=== PATIENT | female | born 1950 | race African-American/Black ===

== ENCOUNTER → 2016-07-19 | Outpatient (CLI) | payer OTHER ==
[~2016-07-19] VITALS: Ht 154.9 cm; Wt 90.7 kg
[~2016-07-19] MED LIST: ASPIR 8181 MG PO; BETIMOL15 ML OP; NORVASC5 MG PO; ZIOPTAN 0.00151 EACH OP
--- NOTE | ~2016-07-19 | S ---
[facility] [place] [address] SURGICAL PATH RPT PROCEDURE Name: ANTONI MONTERO Room #: REG [facility].#: [id number] Admission: 07/19/16 Date of : 46 Discharge: Report #: [id number] Path Case #: [id number] PATHOLOGY REPORT COLLECTION DATE: 07/19/2016 RECEIVED DATE: 07/19/2016 SUBMITTING PHYS: Dr. Jalen Rodriguez OTHER PHYS: Dr. Chaitanya Gold SPECIMEN(S) RECEIVED: A.Bx of gastritis B.Bx of distal esophagus * * * * * * * * * * * * FINAL DIAGNOSIS: A. Gastric mucosa, gastritis, endoscopic biopsy: - Helicobacter pylori-induced moderate active gastritis. - Negative for intestinal metaplasia, atrophy or dysplasia. B. Gastroesophageal mucosa, distal esophagus, endoscopic biopsy: - Specialized columnar (gastric cardia-type mucosa) with intestinal metaplasia, consistent with Deleon's metaplasia. - Negative for dysplasia. - Focal squamous mucosa with mild esophagitis. COMMENT: Helicobacter pylori immunohistochemical stain performed on block A1 moderate number of organisms present. (IUV:csd; d/t: 07/23/2016) PATHOLOGIST: Leslie Childs M.D. REPORT ELECTRONICALLY SIGNED BY: Leslie Childs M.D. DATE/TIME: 07/23/2016 16:08 * * * * * * * * * * * * GROSS PATHOLOGY: A. Received in formalin labeled "Antoni Montero, biopsy of gastritis," are multiple segments of kemp soft tissue measuring 0.6 cm in aggregate dimensions and ranging from 0.1 to 0.2 cm in maximum dimension. The specimen is submitted entirely in cassette A1. B. Received in formalin labeled "Antoni Montero, biopsy of distal esophagus," are multiple segments of kemp soft tissue measuring 0.6 cm in aggregate dimensions and ranging from 0.1 to 0.2 cm in maximum dimension. The specimen is submitted entirely in cassette B1. ([facility]; 07/20/2016) [address] [address] SURGICAL PATH RPT PROCEDURE Name: ANTONI MONTERO A Room #: REG [facility]#: [id number] Admission: 07/19/16 Date of : 46 Discharge: Report #: [id number] Path Case #: [id number] CLINICAL HISTORY: Dysphagia, rule out Deleon's INITIAL CPT CODE(S): A; 24766, 59513 B; 29429 Professional services performed by [facility] at [address], [place] [address] Technical services performed by [facility] at [address] [place] [address], [facility] [address], [place] [address]. [facility] [address] [place] [address] PHONE: [phone] DIRECTOR: Tan Salazar M.D. * * * END OF REPORT * * *
--- NOTE | ~2016-07-19 | P ---
[facility] [place] [address] PROCEDURE REPORT Name: ANTONI SÁNCHEZ Room #: REG [facility]#: [id number] Admission: 07/19/16 Attend Phys: Jalen Rodriguez MD Discharge: Date of : 46 Report #: [id number] THIS REPORT FOR: //name// CC: Chaitanya Rodriguez BRIEF HISTORY: The patient is a 66-year-old woman who presents with solid food dysphagia. She has had symptoms about 1 year, but in particular worsen in the past 3 months. There has been no weight loss. She in particular has difficulty with beef. PREOPERATIVE DIAGNOSIS: Worsening solid food dysphagia. POSTOPERATIVE DIAGNOSES: 1. Grade D erosive esophagitis. 2. Esophageal stricture. 3. Questionable short segment Deleon mucosa. 4. 3 cm hiatus hernia. 5. Antral gastritis with erosions. MEDICATIONS: Deep sedation with propofol per anesthesia. SPECIMEN: Biopsies of gastritis. ESTIMATED BLOOD LOSS: 3 mL. PROCEDURE: EGD with biopsy and Pizano dilation. FINDINGS: Prior to propofol sedation, procedure of upper endoscopy and dilation were discussed with the patient as well as potential risks and its complications. She indicates, she understands and desires to proceed. DESCRIPTION OF PROCEDURE: With the patient in left lateral decubitus position, the Fuji video endoscope was inserted in the cervical esophagus under direct vision without difficulty. Examination of this organ through its entire length revealed normal esophageal mucosa down the distal esophagus. In the distal esophagus, there was circumferential ulcerative changes consistent with grade D erosive esophagitis. There was extensive of ulcerative changes into the distal 2 cm of the esophagus. In addition, there was a mild stricture that was also involved with esophagitis. It did have a smooth and benign appearance. The obvious tumors were not seen. Just beyond this was about a 2 cm segment irregular appearing mucosa. It was not ulcerated or eroded. This may be short segment of Deleon and multiple biopsies were obtained. Beyond this suspected short segment Deleon, a 3 cm hiatus hernia was seen. Mucosa and hernia was normal. Scope was advanced into the stomach, was examined on end view as well as retroflexed views. There was erythema and multiple erosions in the antrum. [facility] [address] [place] [address] PROCEDURE REPORT Name: ANTONI SÁNCHEZ Room #: REG [facility]#: [id number] Admission: 07/19/16 Attend Phys: Jalen Rodriguez MD Discharge: Date of : 46 Report #: [id number] I believe the patient does use an aspirin daily. No ulcers were seen. Active bleeding was not seen. Upon retroflexion, the hiatus hernia was seen. No mass lesions were seen in the cardia. The pylorus, duodenal bulb and postbulbar sweep were all inspected and noted to be within normal limits. At that point, the scope was slowly withdrawn and careful circumferential views confirmed the above findings. The patient tolerated the procedure well. Following the procedure, she was dilated with passage of a 50-Bahamian Pizano dilator. There was no resistance or difficulty passing the dilator. CONDITION OF THE PATIENT UPON DISCHARGE: Following procedure, the patient drowsy. She will be discharged home when fully ambulatory. INSTRUCTIONS TO THE PATIENT AND FAMILY AT THE TIME OF DISCHARGE: We will follow up on the biopsies with regards to possibly Deleon OR even neoplastic changes in the distal esophagus. We will have start her on omeprazole 40 mg daily. Also, have return in approximately 3 months for repeat endoscopy and potentially biopsy, especially with regards to concern for Deleon's mucosa. Deleon mucosa in the face of a Grade D esophagitis. She is return as needed for dilation based on symptoms of recurrent dysphagia. She may need a PPI on a long-term basis. If she does not have adequate control of symptoms, she is to return to see me in followup in the office. She will otherwise return to care of Dr. Chaitanya Gold. By: 0921 [id number] Jalen Rodriguez MD /prakash
== END | disposition home or self-care (01) ==
LOC: GI 07:44
DX: K22.10 Ulcer of esophagus without bleeding (principal); K29.60 Other gastritis without bleeding; K22.2 Esophageal obstruction; K44.9 Diaphragmatic hernia without obstruction or gangrene; I10 Essential (primary) hypertension; Z87.891 Personal history of nicotine dependence; Z90.710 Acquired absence of both cervix and uterus; Z98.41 Cataract extraction status, right eye; Z98.42 Cataract extraction status, left eye; Z96.1 Presence of intraocular lens
CPT/HCPCS: 62110; 62900

== ENCOUNTER → 2016-10-26 | Outpatient (CLI) | payer OTHER ==
[~2016-10-26] VITALS: Ht 154.9 cm; Wt 90.7 kg
[~2016-10-26] MED LIST changes: +OMEPRAZOLE40 MG PO
--- NOTE | ~2016-10-26 | S ---
[facility] [place] [address] SURGICAL PATH RPT PROCEDURE Name: ANTONI MONTERO Room #: REG [facility]#: [id number] Admission: 10/26/16 Date of : 46 Discharge: Report #: [id number] Path Case #: [id number] PATHOLOGY REPORT COLLECTION DATE: 10/26/2016 RECEIVED DATE: 10/26/2016 SUBMITTING PHYS: Dr. Jalen Rodriguez OTHER PHYS: Dr. Chaitanya Gold SPECIMEN(S) RECEIVED: A.Bx of gastritis B.Bx of esophagus * * * * * * * * * * * * FINAL DIAGNOSIS: A. Stomach, "gastritis," biopsy: - Chronic superficial gastritis, mild. - No evidence of Helicobacter pylori on immunoperoxidase stain. B. Esophagus, biopsy: - Squamocolumnar epithelium with moderate chronic submucosal inflammation and focal intestinal metaplasia, findings consistent with Deleon's esophagus. - No evidence of dysplasia. (SKM:mgjoselyn; 10/29/2016) PATHOLOGIST: Maris Wong M.D. REPORT ELECTRONICALLY SIGNED BY: Maris Wong M.D. DATE/TIME: 10/29/2016 15:39 * * * * * * * * * * * * GROSS PATHOLOGY: A. Received in formalin labeled "Antoni Winston, bx of gastritis," are 4 segments of kemp soft tissue measuring 1.2 x 0.3 x 0.2 cm in aggregate dimensions and ranging from 0.2 to 0.4 cm in maximum dimension. The specimen is submitted entirely in cassette A1. B. Received in formalin labeled "Antoni Montero, biopsy of esophagus," are 3 segments of kemp soft tissue measuring 0.7 x 0.5 x 0.2 cm in aggregate dimensions and ranging from 0.2 to 0.5 cm in maximum dimension. The specimen is submitted entirely in cassette B1. ([facility]; 10/27/2016) CLINICAL HISTORY: Pre-op dx: H. pylori history (treated), rule out persistent H. pylori, history of Deleon's Post-op dx: Gastritis, hiatal hernia [address] [address] SURGICAL PATH RPT PROCEDURE Name: ANTONI MONTERO Room #: REG [facility]#: [id number] Admission: 10/26/16 Date of : 46 Discharge: Report #: [id number] Path Case #: [id number] INITIAL CPT CODE(S): A; 95829, 16673 B; 89795 Professional services performed by [facility] at [address] , [place] [address] Technical services performed by [facility] at [address] [place] [address], [facility] [address] [address]. [facility] [address] [place] [address] PHONE: [phone] DIRECTOR: Tan Salazar M.D. * * * END OF REPORT * * *
== END | disposition home or self-care (01) ==
LOC: GI 08:13
DX: K29.40 Chronic atrophic gastritis without bleeding (principal); K22.70 Barrett's esophagus without dysplasia; K22.8 Other specified diseases of esophagus; K44.9 Diaphragmatic hernia without obstruction or gangrene; I10 Essential (primary) hypertension; K21.9 Gastro-esophageal reflux disease without esophagitis; Z87.891 Personal history of nicotine dependence; Z90.710 Acquired absence of both cervix and uterus; Z98.41 Cataract extraction status, right eye; Z98.42 Cataract extraction status, left eye; Z96.1 Presence of intraocular lens; Z98.890 Other specified postprocedural states; Z79.82 Long term (current) use of aspirin; Z79.899 Other long term (current) drug therapy
CPT/HCPCS: 62110; 62900

== ENCOUNTER 2017-09-15 02:11 | Inpatient (IN) | payer OTHER ==
[~2017-09-15] VITALS: Ht 157.5 cm; Wt 96.6 kg
--- NOTE | ~2017-09-15 | HC ---
[facility] [place] [address] CONSULTATION Name: PRINCESSANTONI Charleen Room #: 458-P [facility] IN ..#: [id number] Admission: 09/15/17 Attend Phys: Douglas Jordan MD Discharge: Date of : 46 Report #: [id number] THIS REPORT FOR: //name// CC: Chaitanya Jordan DATE OF SERVICE: 09/15/2017 REFERRING PROVIDER: Douglas Jordan MD REASON FOR CONSULT: Abdominal pain. HISTORY OF PRESENT ILLNESS: A 67-year-old overweight female who presented to the Emergency Room complaining of severe sudden onset abdominal pain that lasted 10-15 minutes and resolved without any reoccurrence of pain. The patient states her pain was in the upper, middle abdomen to the right upper quadrant that was accompanied with a tinge of nausea. The patient was evaluated with laboratories and a CT scan of the abdomen and pelvis. The patient's labs were within normal limits. Her lactic acid was slightly elevated at 2.[address] scan of the abdomen and pelvis showed only a large amount of stool and gas throughout the colon as well as circumferential wall thickening involving the cecum and ascending colon with mesenteric fat stranding suggesting right-sided colitis. No evidence of perforation or abscess was seen. As such, the patient was admitted and I am asked to evaluate. Repeat lactic acid this morning appropriately came down to 1.3 with hydration and she feels quite well at the bedside today. PAST MEDICAL HISTORY: Hypertension, Deleon esophagus, GERD, prior H. pylori positivity, glaucoma, cataracts and she has had a total hysterectomy. HOME MEDICATIONS: Timolol eyedrops, Zioptan eye drops, prednisolone eyedrops, iron, amlodipine and omeprazole. ALLERGIES: No known drug allergies. FAMILY HISTORY: Reviewed and noncontributory. SOCIAL HISTORY: The patient does not currently use any tobacco, alcohol or illicit drugs. She was a former smoker, having a 52-jdqb-kula history. REVIEW OF SYSTEMS: GENERAL: The patient denies nocturnal fevers or chills. HEENT: No change in vision, change in hearing. NECK: No swelling or difficulty swallowing. HEART: No chest pain or palpitations. LUNGS: No cough or shortness of breath. [facility] [address] [place] [address] CONSULTATION Name: ANTONI SÁNCHEZ Charleen Room #: 458-P [facility] IN [facility].#: [id number] Admission: 09/15/17 Attend Phys: Douglas Jordan MD Discharge: Date of : 46 Report #: [id number] ABDOMEN: Fleeting abdominal pain and nausea that has resolved. No diarrhea. GENITOURINARY: No dysuria or hematuria. ENDOCRINE: No polyuria, polydipsia. HEMATOLOGIC: No history of bleeding or easy bruising. EXTREMITIES: No history weakness or limited range of motion. NEUROLOGIC: No history of syncope or near syncopal episodes. SKIN AND INTEGUMENT: No history of abnormal lesions or moles. PSYCHIATRIC: No history of anxiety or depression. PHYSICAL EXAMINATION: VITAL SIGNS: Temperature 97.9, pulse 69, respirations 16, blood pressure 134/50. She is 5 feet 2 inches tall and weighs 213 pounds. GENERAL: Alert and oriented, in no acute distress. HEENT: Normocephalic, atraumatic. Pupils equal, round, reactive to light. NECK: Supple, without lymphadenopathy. Trachea midline. HEART: Regular rate and rhythm. LUNGS: Clear to auscultation bilaterally. ABDOMEN: Soft, nondistended, very minimal tenderness to very deep palpation in the right mid abdomen, but no guarding, rebound or peritoneal signs or symptoms. GENITOURINARY: Normal external female genitalia. EXTREMITIES: No clubbing, cyanosis or edema. NEUROLOGIC: Cranial nerves 2-12 are grossly intact. PSYCHIATRIC: Normal mood and affect. SKIN AND INTEGUMENT: No abnormal lesions or moles. LABORATORY AND X-RAY DATA: CBC shows white blood cell count of 2.9 thousand, hemoglobin 10.0, platelets 365,000. She does have a left shift of 84% neutrophils. Her creatinine is 0.8. Liver function enzymes are normal. Lactate went from 2.6 to 1.[address] scan of the abdomen and pelvis as per HPI shows a circumferential mural thickening of the cecum and ascending colon with pericolonic stranding consistent with right-sided colitis. ASSESSMENT AND PLAN: A 67-year-old overweight female with what appears to be right-sided colitis of unknown etiology. As at this time, the patient's clinical presentation is largely benign and as such, I will allow her to have clear liquids at this time with continuation of IV fluids and IV antibiotics as already initiated. This should be hopefully a self-limited process; however, it would be prudent to get Gastroenterology evaluate as well as she has not had a colonoscopy in some time. We will follow with serial abdominal exams, laboratory evaluation and any radiographic evaluation ongoing as indicated by her clinical course. [address] [address] CONSULTATION Name: ANTONI SÁNCHEZ Room #: 458-P [facility] IN M.R.#: [id number] Admission: 09/15/17 Attend Phys: Douglas Jordan MD Discharge: Date of : 46 Report #: [id number] I sincerely appreciate this consult. I will follow along and leave any further recommendations in the patient's chart as appropriate. <ELECTRONICALLY SIGNED> By: Ryan Mukherjee MD, FACS 09/15/17 [id number] Ryan Mukherjee MD, FACS /nt
--- NOTE | ~2017-09-15 | PATH ---
[facility] [place] [address] PATHOLOGY RPT PROCEDURE Name: ANTONI MONTERO Charleen Room #: 458-P [facility] IN M.R.#: [id number] Admission: 09/15/17 Date of : 46 Discharge: 09/19/17 Report #: [id number] Path Case #: [id number] [facility] Accession Number: [id number] . 01 Material submitted: . PART A: BX'S OF MASS AT PROXIMAL ASCENDING COLON PART B: POLYP AT TRANSVERSE COLON . 01 Clinical history: . Pre-op DX: Colitis, RLQ Post-op DX: Colon mass, colon polyp . 02 Diagnosis: A. 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 . B. Polyp, at transverse colon, endoscopic biopsy: - Cauterized fragment of hyperplastic polyp. - Negative for dysplasia. LBQ/09/20/2017 . 02 Comment: Part A only is co-reviewed by Dr. Marybeth Caicedo. . Findings are discussed with Dr. Karyna Daniel at 12:59 p.m. on 09/20/17. . Per [facility] Cancer Committee Protocol, the MSI markers (four immunohistochemical stains) are ordered on block A1. The results of these will be reported in an addendum to follow. (IUV:db; 09/20/2017) . 02 Addendum: . MICROSATELLITE INSTABILITY REPORT (MSI): . Per the [facility] Cancer Committee Protocol, mismatch repair (MMR) protein immunohistochemical staining was performed. . Reason for testing:To evaluate for evidence of defective mismatch repair proteins. . Method:Immunohistochemical staining for the presence or absence of protein expression of one or more of the following MMR protein markers: MLH1, MSH2, MSH6 and PMS2. . Tumor type:[place] [address] PATHOLOGY RPT PROCEDURE Name: ANTONI MONTERO Charleen Room #: 458-P [facility] IN .R.#: [id number] Admission: 09/15/17 Date of : 46 Discharge: 09/19/17 Report #: [id number] Path Case #: [id number] . Results: MLH1 - Preserved MSH2 - Preserved MSH6 - Preserved PMS2 - Preserved . Mismatch Repair Status:MMR Proficient (MMR-P) . Interpretation: . (MMR-P) All four MMR proteins are preserved within tumor cells. This suggests the presence of normal DNA mismatch repair function within the tumor and an observable defect in mismatch repair is not identified. The likelihood that this patient has an inherited germline mutation syndrome due to defective mismatch repair is reduced but not totally eliminated. If the patient has a strong personal or family history of HPNCC/Frankel syndrome related cancers (colorectal, endometrial, gastric, ovarian, pancreatic, ureter/renal pelvis, biliary tract, brain, small bowel and Twain Harte-Miguel syndrome), consider MSI testing by PCR methodology. Suggest clinical correlation and follow up. . These test results are designed for screening purposes only and are useful tools in identifying cancer patients that are more likely to have Frankel Syndrome related diagnoses. Tests should be interpreted in the context of clinical findings, family history and laboratory data. Abnormal IHC results for MMR protein expression are not considered diagnostic for Frankel Syndrome. (IUV:db; 09/24/2017) . Professional services performed by [employer] at [facility], [address] [place] [address] , [place] [address]. Technical services performed by [employer] at [address] [place] [address], [address], [place] [address]. QRQ/09/24/2017 Addendum Electronically Signed by Leslie Childs MD, Pathologist . 02 Electronically signed: . Leslie Childs MD, Pathologist NPI- [id number] . 01 Gross description: . A. Received in formalin labeled "Antoni Montero, BXs of mass at proximal ascending colon," are eight segments of kemp soft tissue measuring 1.0 x 0.7 x 0.3 cm in aggregate dimensions and ranging from 0.2 to 0.5 cm in maximum dimension. The specimen is submitted entirely in cassette A1. . B. Received in formalin labeled "Faviola Monteroh, polyp at transverse colon," is a segment of kemp soft tissue measuring 0.4 cm in maximum dimension [facility] [address] [place] [address] PATHOLOGY RPT PROCEDURE Name: ANTONI MONTERO Room #: 458-P [facility] IN M.R.#: [id number] Admission: 09/15/17 Date of : 46 Discharge: 09/19/17 Report #: [id number] Path Case #: [id number] admixed with mucoid material. The specimen is submitted entirely in cassette B1. (DAC; 09/19/2017) XDC/XDC . 02 Pathologist provided ICD-10: C18.2, D12.2, K63.5 . 02 CPT . 971585, 940230, D59201, W68071 Performed at: [address] [facility], [place] [id number] MD Rome Ferguson MD Phone: [phone] Performed at: [address] [id number] MD Leslie Childs MD Phone: [phone]
[~2017-09-15 02:11] MED LIST changes: -BETIMOL15 ML OP; +BETIMOL5 ML INTRAOCULR
[2017-09-15 02:16] VITALS: BP 160/87
[2017-09-15 02:47] LABS: URINE BILIRUBIN NEGATIVE (Negative); URINE BLOOD NEGATIVE (Negative); URINE CLARITY CLEAR; URINE COLOR YELLOW; URINE GLUCOSE-RANDOM* NEGATIVE (Negative); URINE KETONES NEGATIVE (Negative); URINE LEUKOCYTES NEGATIVE (Negative); URINE NITRITE NEGATIVE (Negative); URINE PROTEIN (DIPSTICK) NEGATIVE (Negative); URINE UROBILINOGEN 0.2 E.U./dl (0.2-1.0)
[2017-09-15 03:10] LABS: HEMATOCRIT 30.9 % (37.0-47.0); MCH 28.1 pg (26.0-34.0); MCHC 32.3 g/dL (28.0-37.0); PLATELET COUNT 365 thou/uL (150-400); RBC 3.56 mil/uL (4.20-5.00); RDW 16.5 % (10.5-14.5); WBC 2.9 thou/uL (4.0-11.0)
[2017-09-15 03:20] LABS: CALCIUM 8.7 mg/dL (8.5-10.1); CREATININE 0.8 mg/dL (0.6-1.0); POTASSIUM 3.5 mmol/L (3.5-5.1)
[2017-09-15 03:26] LABS: ALBUMIN 3.4 g/dL (3.4-5.0); DIRECT BILIRUBIN 0.1 mg/dL (<0.1-0.3); TOTAL BILIRUBIN 0.5 mg/dL (<0.1-1.0); TOTAL PROTEIN 7.5 g/dL (6.4-8.2)
[2017-09-15 03:43] LABS: ABSOLUTE NEUTROPHILS 2.5 thou/uL (1.4-8.2); ANISOCYTOSIS 1+
[2017-09-15 03:44] LABS: MACROCYTES SLIGHT; POLYCHROMASIA OCCASIONAL
[2017-09-15] MEDS ORDERED: PRED MILD5 ML INTRAOCULR (04:12)
[2017-09-15] MEDS ORDERED: IRON325 PO (04:13)
[2017-09-15 07:00] VITALS: BP 132/63
[2017-09-15 19:58] VITALS: BP 134/50
[2017-09-16 04:03] VITALS: BP 143/76
[2017-09-16 06:31] LABS: BASOPHILS 0.4 % (0.0-2.0); EOSINOPHILS 0.6 % (0.0-3.0); HEMATOCRIT 27.2 % (37.0-47.0); HEMOGLOBIN 8.7 gm/dL (12.0-15.0); LYMPHOCYTES 21.9 % (24.0-44.0); MCH 28.1 pg (26.0-34.0); MCHC 32.2 g/dL (28.0-37.0); MCV 87.1 fL (80.0-100.0); MONOCYTES 8.5 % (1.0-8.0); PLATELET COUNT 273 thou/uL (150-400); POLYS 68.6 % (36.0-66.0); RBC 3.12 mil/uL (4.20-5.00); RDW 16.2 % (10.5-14.5); WBC 7.2 thou/uL (4.0-11.0)
[2017-09-16 06:55] LABS: CALCIUM 8.4 mg/dL (8.5-10.1); CREATININE 0.7 mg/dL (0.6-1.0); MAGNESIUM 1.7 mg/dL (1.8-2.4); POTASSIUM 3.2 mmol/L (3.5-5.1)
[2017-09-16 08:09] VITALS: BP 168/70
[2017-09-16 10:46] LABS: % SATURATION 5 % (20-39); IRON 15 ug/dL (50-170); TIBC 302 ug/dL (250-450)
[2017-09-16 15:59] VITALS: BP 145/63
[2017-09-16 18:42] LABS: MAGNESIUM 2.7 mg/dL (1.8-2.4); POTASSIUM 4.2 mmol/L (3.5-5.1)
[2017-09-16 21:06] VITALS: BP 132/67
[2017-09-17 04:14] VITALS: BP 150/75
[2017-09-17 07:20] VITALS: BP 146/73
[2017-09-17 15:53] VITALS: BP 153/84
[2017-09-17 19:27] VITALS: BP 155/79
[2017-09-18 03:20] VITALS: BP 144/72
[2017-09-18 05:19] LABS: HEMATOCRIT 30.3 % (37.0-47.0); HEMOGLOBIN 9.7 gm/dL (12.0-15.0); MCHC 31.9 g/dL (28.0-37.0); MCV 87.6 fL (80.0-100.0); RBC 3.46 mil/uL (4.20-5.00); RDW 15.8 % (10.5-14.5); WBC 4.5 thou/uL (4.0-11.0)
[2017-09-18 05:36] LABS: CALCIUM 8.7 mg/dL (8.5-10.1); CREATININE 0.7 mg/dL (0.6-1.0); POTASSIUM 3.5 mmol/L (3.5-5.1)
[2017-09-18 08:00] VITALS: BP 152/69
[2017-09-18 16:00] VITALS: BP 179/85
[2017-09-18 19:30] VITALS: BP 126/69
[2017-09-19 04:26] VITALS: BP 144/70
[2017-09-19 05:28] LABS: HEMATOCRIT 30.5 % (37.0-47.0); HEMOGLOBIN 9.7 gm/dL (12.0-15.0); MCH 27.8 pg (26.0-34.0); MCHC 31.8 g/dL (28.0-37.0); MCV 87.4 fL (80.0-100.0); RBC 3.49 mil/uL (4.20-5.00); RDW 15.8 % (10.5-14.5); WBC 3.6 thou/uL (4.0-11.0)
[2017-09-19 05:41] LABS: CALCIUM 8.7 mg/dL (8.5-10.1); CREATININE 0.7 mg/dL (0.6-1.0); POTASSIUM 3.5 mmol/L (3.5-5.1)
[2017-09-19 08:00] VITALS: BP 146/72
[2017-09-19 15:55] VITALS: BP 139/77
[2017-09-19] MEDS ORDERED: AUGMENTIN 875-1 EACH PO (16:57)
[2017-09-19 17:45] VITALS: BP 139/77
[2017-09-19 20:35] VITALS: BP 142/79
== END 2017-09-19 23:52 | disposition home or self-care (01) | DRG 871 ==
LOC: ER 02:11 → 4W 05:01 → EROBS 05:01 → 4W 06:39
PROVIDERS: Emergency Medicine; Hospitalist; Internal Medicine; Nurse Practitioner
PROC: 0DBK8ZX Excision of Ascending Colon, Via Natural or Artificial Opening Endoscopic, Diagnostic (ICD-10-PCS; principal; 2017-09-18)
PROC: 0DBL8ZZ Excision of Transverse Colon, Via Natural or Artificial Opening Endoscopic (ICD-10-PCS; principal; 2017-09-18)
DX: A41.9 Sepsis, unspecified organism (principal); E43 Unspecified severe protein-calorie malnutrition; K52.9 Noninfective gastroenteritis and colitis, unspecified; I10 Essential (primary) hypertension; H40.9 Unspecified glaucoma; D72.819 Decreased white blood cell count, unspecified; K21.9 Gastro-esophageal reflux disease without esophagitis; K37 Unspecified appendicitis; D50.9 Iron deficiency anemia, unspecified; K59.09 Other constipation; K82.8 Other specified diseases of gallbladder; Z90.710 Acquired absence of both cervix and uterus; Z98.42 Cataract extraction status, left eye; Z98.41 Cataract extraction status, right eye; Z87.891 Personal history of nicotine dependence; Z79.899 Other long term (current) drug therapy; Z79.82 Long term (current) use of aspirin; Z68.38 Body mass index [BMI] 38.0-38.9, adult
CPT/HCPCS: 10040; 62110; 62900; 70005

== ENCOUNTER 2017-10-29 05:32 | Inpatient (IN) | payer OTHER ==
[2017-10-29] VITALS (9 sets, daily range): BP systolic 115–153; BP diastolic 45–76
[~2017-10-29] VITALS: Ht 157.5 cm; Wt 91.6 kg
--- NOTE | ~2017-10-29 | PATH ---
[facility] [place] [address] PATHOLOGY RPT PROCEDURE Name: ANTONI MONTERO Charleen Room #: 220-P [facility] IN M.R.#: [id number] Admission: 10/29/17 Date of : 46 Discharge: 11/01/17 Report #: [id number] Path Case #: [id number] [facility] Accession Number: [id number] . 01 Material submitted: . PART A: ILEOCECAL PART B: ANASTOMATIC END . 01 Clinical history: . Right colon cancer . 02 Diagnosis: A. Ileum, appendix and right colon, robotic right hemicolectomy: - INVASIVE MODERATELY DIFFERENTIATED ADENOCARCINOMA, INVADING THROUGH MUSCULARIS PROPRIA INTO SUBSEROSAL CONNECTIVE TISSUES. - Tumor deposits present in pericolonic adipose tissue. - Additional tubular adenoma x 2 identified in the colon. - Appendix showing fibrous obliteration of the tip. - Margins of resection free of malignancy. - NINE LYMPH NODES SHOWING METASTATIC ADENOCARCINOMA OF TWENTY-TWO SAMPLED. . B. Small bowel and large intestine, anastomotic end: - Negative for dysplasia or malignancy. - No histopathologic abnormalities present. (IUV:pit 11/01/2017) . . Surgical Pathology Cancer Case Summary . . . Protocol posting date: August 2016 . . . . . COLON AND RECTUM: Resection, Including Transanal Disk Excision of Rectal Neoplasms . . Procedure ___ Right hemicolectomy/ Robotic Colon Resection . . . Tumor Site [address] [address] PATHOLOGY RPT PROCEDURE Name: ANTONI MONTERO Cahrleen Room #: 220-P [facility] IN ..#: [id number] Admission: 10/29/17 Date of : 46 Discharge: 11/01/17 Report #: [id number] Path Case #: [id number] ___ Right (ascending) colon . . . Tumor Size Greatest dimension (centimeters): 5.0 x 3.5 cm . . . Macroscopic Tumor Perforation . ___ Not identified . . . Histologic Type ___ Adenocarcinoma . . . Histologic Grade ___ G2: Moderately differentiated . . . Tumor Extension . ___ Tumor invades through the muscularis propria into pericolorectal tissue . . . Margins ___ All margins are uninvolved by invasive carcinoma, high-grade dysplasia, intramucosal adenocarcinoma, and adenoma . Margins examined: . Distance of invasive carcinoma from closest margin: 2.5 cm . Specify closest margin: Ileocecal margin . . . Treatment Effect . ___ No known presurgical therapy . [address] [address] PATHOLOGY RPT PROCEDURE Name: ANTONI MONTERO Room #: 220-P [facility] IN ..#: [id number] Admission: 10/29/17 Date of : 46 Discharge: 11/01/17 Report #: [id number] Path Case #: [id number] . Lymphovascular Invasion ___ Present . . Perineural Invasion ___ Not identified . . . Tumor Deposits . ___ Present . . Regional Lymph Nodes . . Number of Lymph Nodes Involved: 9 . . . Number of Lymph Nodes Examined: 22 . Pathologic Stage Classification (pTNM, AJCC 8th Edition) Note: Reporting of pT, pN, and (when applicable) pM categories is based on information available to the pathologist at the time the report is issued. . . Primary Tumor (pT) ___ pT3: Tumor invades through the muscularis propria into pericolorectal tissues . . . Regional Lymph Nodes (pN) ___ pN2b: Seven or more regional lymph nodes are positive . . . Distant Metastasis (pM) (required only if confirmed pathologically in this case) ___ pMx: Not known P/11/01/2017 . 02 Electronically signed: . Leslie Childs MD, Pathologist [facility] [address] [place] [address] PATHOLOGY RPT PROCEDURE Name: ANTONI MONTERO Room #: 220-P [facility] IN .R.#: [id number] Admission: 10/29/17 Date of : 46 Discharge: 11/01/17 Report #: [id number] Path Case #: [id number]- [id number] . 01 Gross description: . A. The specimen is received in formalin, labeled "Antoni Montero, ileocecal" and consists of a previously opened right hemicolectomy specimen consisting of terminal ileum (6.4 cm in length and 1.8 cm in diameter), large intestine (19.9 cm in length and 2.0 cm in diameter), appendix (7.5 cm in length and 0.6 cm in diameter), and pericolic fat (up to 6.0 cm). Both margins are closed with josephine. There is an ulcerated kemp-brown mass with rolled edges (5.0 x 3.5 cm) in the upper cecum/lower large intestine which extends to within 10.0 cm of the distal margin, 6.4 cm of the proximal margin, 2.5 cm from the ileocecal valve, and 2.0 cm from the mesenteric margin. The mesenteric margin is inked black and the serosa blue. Sectioning reveals the mass obliterates the muscular wall and extends into the pericolic fat to a maximum depth of 2.1 cm. The remainder of the mucosa shows unremarkable transverse folds with multiple additional polyps in the cecum ranging from 0.2 cm to 0.6 cm. The appendix serosa is lara-kemp and extensively covered with thick fibrous adhesions and sectioning reveals a patent lumen. The pericolic fat is sectioned and placed in clearing solution to reveal multiple lymph node candidates ranging from 0.2 cm to 2.4 cm with the largest candidate being suspicious for malignancy. [employer] [facility] sections are submitted as follows: . A1: Proximal margin A2: Distal margin A3-A5: Deepest invasion (A4-A5 one section bisected) A6-A8: Additional mass A9: Additional polyps A10: Appendix A11-A13: Suspicious lymph node candidate A14: Two bisected lymph node candidates, one inked black A15: 2 bisected lymph node candidates, one inked black A16-A17: Intact lymph node candidates . B. The specimen is received in formalin, labeled "Antoni Montero, anastomotic end" and consists of a circular segment of mucosal tissue measuring 2.5 x 2.0 x 1.0 cm. Represent sections are submitted in B1. (SDY; 10/30/2017) SYU/SYU . 02 Pathologist provided ICD-10: C18.2, C77.2, D12.6, K38.8 . 02 CPT . 969210, 769518 Performed at: 01 [place] [address] PATHOLOGY RPT PROCEDURE Name: ANTONI MONTERO Room #: 220-P [facility] IN M.R.#: [id number] Admission: 10/29/17 Date of : 46 Discharge: 11/01/17 Report #: [id number] Path Case #: [id number] [address] [facility] [address], [place], [place] [id number] MD Rome Ferguson MD Phone: [phone] Performed at: [address] [id number] MD Leslie Childs MD Phone: [phone]
--- NOTE | ~2017-10-29 | O ---
[facility] [place] [address] OPERATIVE REPORT Name: ANTONI SÁNCHEZ Room #: 426-P [facility] IN M.R.#: [id number] Admission: 10/29/17 Attend Phys: Ryan Mukherjee MD, Discharge: Date of : 46 Report #: [id number] THIS REPORT FOR: //name// CC: Chaitanya Mukherjee DATE OF SERVICE: 10/29/2017 PREOPERATIVE DIAGNOSIS: Biopsy proven cancer of the cecum. POSTOPERATIVE DIAGNOSIS: Biopsy proven cancer of the cecum. PROCEDURE: Robotic-assisted laparoscopic right hemicolectomy. SURGEON: Ryan Mukherjee MD. NURSING ATTENDANT: ARIANA Romero. ANESTHESIA: General endotracheal anesthesia. ESTIMATED BLOOD LOSS: Minimal (less than 10 mL). COMPLICATIONS: None appreciated. SPECIMENS: Right colon to pathology. INDICATIONS: The patient is a 67-year-old female who presented with right-sided colitis and pain with thickening of the cecum and proximal ascending colon on CT scan. The patient underwent colonoscopy showing a fungating mass in that area that was biopsy proven colon cancer and as such, indication was for hemicolectomy today. DESCRIPTION OF PROCEDURE: After explaining the risks, benefits and alternatives of the procedure with the patient in detail in the preoperative holding area and obtaining written consent, the patient was brought to the operating room and placed supine on the operating room table. After conducting a thorough timeout procedure verifying correct patient and procedure, the patient was given general endotracheal anesthesia. Once adequate anesthesia was obtained, her SCDs were hooked up to pneumatic compression device and she was given a preoperative dose of antibiotics in line with the SCIP protocol. The patient's abdomen was prepped and draped in standard surgical sterile fashion. 5 mL of 0.5% Marcaine with epinephrine were used to anesthetize the skin in the left upper quadrant midclavicular line and subcostal location. A #15 bladed scalpel was used to create a small skin jacklyn at this location. A 5-mm Visiport was placed over 0-degree 5-mm laparoscope and was introduced through this incision site. Once intra-abdominal placement was verified visually, the obturator for the trocar [address] [address] OPERATIVE REPORT Name: ANTONI SÁNCHEZ Room #: 426-P [facility] IN [facility]#: [id number] Admission: 10/29/17 Attend Phys: Ryan Mukherjee MD, Discharge: Date of : 46 Report #: [id number] and laparoscope were both removed and the abdomen was insufflated to 15 mmHg using carbon dioxide gas. The laparoscope was changed to a 5-mm 30-degree laparoscope, which was reintroduced through this trocar. The entire abdomen was evaluated to ensure no injury upon entry. I immediately saw intra-abdominal adhesions widespread throughout the mid abdomen. The left lateral abdomen was devoid of adhesions and I was able to place 2 additional 8-mm robotic trocars under direct vision at this time. The first was placed 1 cm cephalad to the umbilicus and 5 cm to the patient's left and second was placed in the left lower quadrant. Both were placed under direct vision after anesthetizing the skin at each location with 5 mL of 0.5% Marcaine with epinephrine, I had created small skin nicks using #15 bladed scalpel. I now used EndoShears to take down the omental adhesions from the abdominal wall and in the course of doing so, we saw evidence of an incarcerated band of omentum in the suprapubic location from prior incision site. Once I had taken all the adhesions down, I was able to place an additional 8-mm port in the right lower quadrant under direct vision in standard fashion. A 0 PDS suture was now placed in the abdomen and was used to place a [id number] fascial suture around the incisional ventral hernia. Under direct vision, which was tied down. We now turned our attention to docking the da Kierra SI robot in standard fashion. Cadiere forceps were used to elevate the cecum and lamont with electrocautery were used to mobilize along the white line of Toldt on the patient's right side. The vessel sealer was used to take down the ileocecal vessels and I was able to medially mobilize the colon. We turned our attention to the mid transverse colon, which was elevated and I took down the gastrocolic ligament mobilizing the entire hepatic flexure with the vessel sealer device being cognizant not to injure the duodenum in any way as we stayed well outside the duodenal wall. Now that we had fully mobilized the right colon with the robotic assistance, I made a periumbilical incision after undocking the robot. A wound protector was placed through the periumbilical incision and I was able to deliver the specimen through the incision. A window was made in the terminal ileum as well as the portion of the colon for transection and each was transected with a MENDEZ blue load 75-mm stapler. The EnSeal X1 device was used to come across the mesentery as low as possible for hemostasis to completely resect the specimen. The distal ileum and proximal staple line of the colon were now aligned in a evnf-oa-whzr functional end-to-end fashion and the antimesenteric corners of the staple lines were removed with Pruitt scissors. Another firing of the MENDEZ blue load 75-mm stapler was carried out by passing each limb of the stapler down the enterotomies clamping and firing. The stapler was removed and Allis clamps were placed on the common enterotomy, which was closed using a TX blue load 60 stapler. The anastomotic ends were passed off the field as specimen as well. 3-0 PDS was used in the crotch of the staple line to act as an anti-tension stitch and I proceeded to oversew the TX staple line using several 3-0 PDS sutures in standard interrupted Lembert fashion. Digital finger palpation of the ileocolic anastomosis showed it to be widely patent. We had complete hemostasis. The bowel was placed back in the abdomen and the laparoscope was placed back in the abdomen showing no twisting to the anastomosis and no bleeding. The abdomen was [address] [address] OPERATIVE REPORT Name: RHIANNONCASSANDRAANTONI Room #: 426-P [facility] IN .R.#: [id number] Admission: 10/29/17 Attend Phys: Ryan Mukherjee MD, Discharge: Date of : 46 Report #: [id number] fully desufflated. All trocars removed under direct vision as was the wound protector. I then closed the midline fascial wound using #1 PDS suture in standard running fashion. A 4-0 Monocryl was used in a standard subcuticular fashion for all skin incisions and Dermabond glue was applied to all skin wounds. At the end of the procedure, all instrument, needle and sponge counts were correct. The patient tolerated the procedure without incident, was awakened in the operating room and transitioned to the recovery room in stable condition with no apparent complications. <ELECTRONICALLY SIGNED> By: Ryan Mukherjee MD, FACS 10/30/17 0847 [id number] 1230 Ryan Mukherjee MD, FACS /nt
[~2017-10-29 05:32] MED LIST changes: +ATORVASTATIN CA40 MG PO; +AUGMENTIN 875-1 EACH PO; -BETIMOL5 ML INTRAOCULR; +BETIMOL5 ML OPHTHALMIC; +IRON325 PO; +PRED MILD5 ML OPHTHALMIC; -ZIOPTAN 0.00151 EACH OP; +ZIOPTAN 0.00151 EACH OPHTHALMIC
[2017-10-29 07:18] LABS: HEMATOCRIT 31.1 % (37.0-47.0); HEMOGLOBIN 10.3 gm/dL (12.0-15.0); MCH 28.7 pg (26.0-34.0); MCHC 33.2 g/dL (28.0-37.0); MCV 86.4 fL (80.0-100.0); RBC 3.6 mil/uL (4.20-5.00); RDW 15.8 % (10.5-14.5); WBC 3.7 thou/uL (4.0-11.0)
[2017-10-30 04:24] VITALS: BP 154/72
[2017-10-30 04:31] LABS: HEMATOCRIT 28.7 % (37.0-47.0); HEMOGLOBIN 9.3 gm/dL (12.0-15.0); MCH 28.5 pg (26.0-34.0); MCHC 32.5 g/dL (28.0-37.0); MCV 87.7 fL (80.0-100.0); RBC 3.28 mil/uL (4.20-5.00); RDW 16.4 % (10.5-14.5); WBC 10.4 thou/uL (4.0-11.0)
[2017-10-30 04:38] LABS: CALCIUM 8.5 mg/dL (8.5-10.1); CREATININE 0.9 mg/dL (0.6-1.0); POTASSIUM 4.3 mmol/L (3.5-5.1)
[2017-10-30 08:00] VITALS: BP 135/50
[2017-10-30 08:05] VITALS: BP 135/50
[2017-10-30 09:00] VITALS: BP 135/50
[2017-10-30 16:20] VITALS: BP 132/71
[2017-10-30 20:00] VITALS: BP 132/71
[2017-10-31 07:05] VITALS: BP 148/65
[2017-10-31 07:46] LABS: ABSOLUTE NEUTROPHILS 5.4 thou/uL (1.4-8.2); HEMATOCRIT 27.7 % (37.0-47.0); LYMPHOCYTES 18.8 % (24.0-44.0); MCH 28.7 pg (26.0-34.0); MCHC 32.7 g/dL (28.0-37.0); MCV 87.7 fL (80.0-100.0); MONOCYTES 8.8 % (1.0-8.0); PLATELET COUNT 337 thou/uL (150-400); POLYS 71.4 % (36.0-66.0); RBC 3.16 mil/uL (4.20-5.00); RDW 16.2 % (10.5-14.5); WBC 7.5 thou/uL (4.0-11.0)
[2017-10-31 07:54] LABS: CALCIUM 8.6 mg/dL (8.5-10.1); CREATININE 0.7 mg/dL (0.6-1.0); POTASSIUM 3.5 mmol/L (3.5-5.1)
[2017-10-31 20:05] VITALS: BP 136/74
[2017-11-01 07:15] VITALS: BP 162/68
[2017-11-01 07:30] LABS: ABSOLUTE NEUTROPHILS 2.7 thou/uL (1.4-8.2); BASOPHILS 0.6 % (0.0-2.0); EOSINOPHILS 0.6 % (0.0-3.0); HEMOGLOBIN 8.9 gm/dL (12.0-15.0); LYMPHOCYTES 31.7 % (24.0-44.0); MCH 28.5 pg (26.0-34.0); MCHC 32.9 g/dL (28.0-37.0); MCV 86.7 fL (80.0-100.0); MONOCYTES 11.3 % (1.0-8.0); PLATELET COUNT 330 thou/uL (150-400); POLYS 55.8 % (36.0-66.0); RBC 3.12 mil/uL (4.20-5.00); RDW 15.9 % (10.5-14.5); WBC 4.8 thou/uL (4.0-11.0)
[2017-11-01 07:41] LABS: CALCIUM 8.6 mg/dL (8.5-10.1); CREATININE 0.7 mg/dL (0.6-1.0); POTASSIUM 3.5 mmol/L (3.5-5.1)
[2017-11-01] MEDS ORDERED: ZOFRAN ODT4 MG DISSOLVE (07:54)
[2017-11-01 10:08] VITALS: BP 162/68
== END 2017-11-01 11:24 | disposition home or self-care (01) | DRG 331 ==
LOC: 4E 05:32 → TBA 05:32 → PRE 06:56 → 4E 13:49 → SICU 10-30 14:20 → ENTRNSPT 10-30 17:06 → SICU 11-01 11:24
PROVIDERS: Surgery
DX: C18.0 Malignant neoplasm of cecum (principal); Z79.899 Other long term (current) drug therapy; Z88.1 Allergy status to other antibiotic agents; Z90.710 Acquired absence of both cervix and uterus
CPT/HCPCS: 10783; 15002; 50010; 50093; 50101; 50221; 50249; 50386; 50455; 50555; 50558; 51435; 51708; 51712; 52265; 54022; 54118; 56462; 56525; 56526; 56530; 56641; 57092; 57130; 57154; 62110; 62900; 70005

== ENCOUNTER → 2019-02-12 | Outpatient (CLI) | payer OTHER ==
[~2019-02-12] MED LIST changes: +ZOFRAN ODT4 MG DISSOLVE
== END ==
LOC: CAT 01-23 15:45
DX: Z13.6 Encounter for screening for cardiovascular disorders (principal); E78.00 Pure hypercholesterolemia, unspecified; I25.10 Atherosclerotic heart disease of native coronary artery without angina pectoris

== ENCOUNTER → 2019-10-09 | Outpatient (CLI) | payer OTHER | LOC: SJCVC 11:09 | PROVIDERS: ATTEND Internal Medicine Cardiovascular Disease | DX: I49.9 Cardiac arrhythmia, unspecified (principal); E78.00 Pure hypercholesterolemia, unspecified; I10 Essential (primary) hypertension; K22.70 Barrett's esophagus without dysplasia; Z82.49 Family history of ischemic heart disease and other diseases of the circulatory system ==

== ENCOUNTER → 2020-04-29 | Outpatient (CLI) | payer OTHER | LOC: SJCVC 14:44 | PROVIDERS: ATTEND Internal Medicine Cardiovascular Disease | DX: R94.31 Abnormal electrocardiogram [ECG] [EKG] (principal); I49.1 Atrial premature depolarization; I10 Essential (primary) hypertension; Z90.710 Acquired absence of both cervix and uterus; Z98.890 Other specified postprocedural states; Z88.8 Allergy status to other drugs, medicaments and biological substances; Z79.899 Other long term (current) drug therapy; Z87.891 Personal history of nicotine dependence; Z85.038 Personal history of other malignant neoplasm of large intestine ==

== ENCOUNTER → 2021-03-20 | Outpatient (CLI) | payer OTHER | LOC: SJCVC 11:26 → SJCVCIMAG 11:26 | PROVIDERS: ATTEND Internal Medicine Cardiovascular Disease | DX: R94.31 Abnormal electrocardiogram [ECG] [EKG] (principal); I08.8 Other rheumatic multiple valve diseases; I10 Essential (primary) hypertension; E78.00 Pure hypercholesterolemia, unspecified; R00.2 Palpitations; Z82.49 Family history of ischemic heart disease and other diseases of the circulatory system; Z85.038 Personal history of other malignant neoplasm of large intestine; Z88.8 Allergy status to other drugs, medicaments and biological substances; Z79.899 Other long term (current) drug therapy; Z87.891 Personal history of nicotine dependence ==